=== PATIENT | female | born 1945 | race Caucasian/White ===

== ENCOUNTER 2016-10-20 06:11 | Day surgery (SDC) | payer OTHER ==
[2016-10-15 15:43] VITALS: BMI 25.9
[2016-10-20] MEDS ORDERED: TETRACAINE 0.5% OPHTH SOLN 2 ML BOTTLE ONE (07:14)
[2016-10-20] MEDS ORDERED: LIDOCAINE 1%-EPI 1:100,000 30 ML MDV IJ ONE (07:14)
[2016-10-20] MEDS ORDERED: BACITRACIN 3.5 GM OPTHALMIC OINT TUBE ONE (07:14)
[2016-10-20] MEDS ORDERED: POVIDONE-IODINE 5% OPHTHALMIC PREP 30 ML SOLUTION ONE (07:14)
[2016-10-20] MEDS ORDERED: MIDAZOLAM HCL 2 MG/2 ML SINGLE DOSE VIAL ONE (07:19)
[2016-10-20] MEDS ORDERED: PROPOFOL 20 ML ONE (07:19)
[2016-10-20] MEDS ORDERED: ceFAZolin SODIUM 1 GM VIAL ONE (07:49)
[2016-10-20] MEDS ORDERED: DEXAMETHASONE SOD PHOSPHATE 4 MG/1 ML VIAL ONE (08:05)
[2016-10-20] MEDS ORDERED: ONDANSETRON 4 MG/2 ML VIAL ONE (08:05)
[2016-10-20] MEDS ORDERED: LIDOCAINE HCL/PF 2% SDV 5ML VIAL ONE (08:17)
[2016-10-20] MEDS ORDERED: ACETAMINOPHEN 500 MG TABLET (FP) PO PRN (08:19)
--- NOTE | 2016-10-20 09:06 | OP ---
DATE OF OPERATION: 10/20/2016 PREOPERATIVE DIAGNOSIS: Involutional ptosis, left upper lid. POSTOPERATIVE DIAGNOSIS: Involutional ptosis, left upper lid. PROCEDURE: External levator reattachment, left upper lid. SURGEON: Cornelio Kaufman MD ANESTHESIA: Local with sedation. COMPLICATONS: None. ESTIMATED BLOOD LOSS: Less than 1 mL. OPERATION REPORT: Patient was brought to the operating room, placed on the operating room table. Vital signs monitored by Anesthesia. Tetracaine was placed in both eyes. Lid crease incision approximately 10 mm above the last line was marked with a sternile marking pin. Time-out was performed. The patient was given intravenous sedation, and 2% Xylocaine with 1:100,000 epinephrine was injected for 0.5 mL in the area of the lid crease, and then was allowed to disperse over the eyelid with gentle massage. Patient was prepped and draped in the usual sterile fashion exposing both eyes, and the following procedure was performed. The lid crease incision was incised with a 15 blade. Hemostasis was achieved with the [place] needle, and the [place] needle was used to continue the dissection through the orbicularis layer until the septum was visible. Suborbicularis plane was dissected as the fat pad had retracted significantly with complete dehiscence of this levator, and therefore, the dissection was carried into the superior orbit under the orbicularis where the septum was widely opened and the preaponeurotic running fat, was retracted demonstrating completely dehisced levator aponeurosis. Following this, the suborbicularis plane was dissected inferiorly, exposing the anterior superior tarsus, and then, the bleeding edge of the levator with its minimal amount of retained tendon was then reattached to the anterior superior tarsus partial thickness bite with a mattress 6-0 Vicryl suture. Patient was allowed to wake up, placed in the upright position, and the lid was seen to be appropriate, but much higher than the other lid, and therefore, as much of the tendon as could be salvaged was isolated, and a suture was passed through this portion of the tendon at its distal edge, slightly nasal to central, and then, patient was again placed in the upright positon. Good lid height and contour were seen with the lid approximately 3 to 3.5 mm above the visual axis. It could only have been dropped further with a hang-back suture, which would have been unpredictable, and therefore, it was left at this height. Additional single-arm 6-0 Vicryl suture was placed nasal to this suture. Lid height and contour were again checked and seemed to be excellent. Antibiotic irrigation was performed. Meticulous hemostasis was obtained. The wound was closed with a running 6-0 plain suture with plastic technique, and Bacitracin ointment was placed on the suture, and the patient was taken to the recovery room in stable condition. CORNELIO KAUFMAN M.D. [id number]
[2016-10-20] MEDS ORDERED: ACETAMINOPHEN 500 MG TABLET (FP) ONE (09:13)
[2016-10-20] MEDS ORDERED: ONDANSETRON 4 MG/2 ML VIAL IVPUSH PRN (09:42)
[2016-10-20] MEDS ORDERED: LACTATED RINGERS SOLUTION 1,000 ML IV SCH (09:45)
[2016-10-20 11:49] VITALS: TEMP 97.6
[2016-10-20 11:53] VITALS: BP 113/89; PULSE 68
== END 2016-10-20 09:45 | disposition home or self-care (01) ==
LOC: FASU 06:11
PROVIDERS: ATTEND Ophthalmology
PROC: 08BP0ZZ Excision of Left Upper Eyelid, Open Approach (ICD-10-PCS; principal; 2016-10-20 07:52)
DX: H02.402 Unspecified ptosis of left eyelid (principal)
CPT/HCPCS: 94760

== ENCOUNTER 2021-02-04 07:00 | Inpatient (IN) | payer OTHER ==
[2021-01-31 13:10] VITALS: BMI 24.9
[2021-02-04] MEDS ORDERED: CELECOXIB 200 MG CAPSULE PO ONE ×3 (07:16→07:45)
[2021-02-04] MEDS ORDERED: CEFAZOLIN 2 GM in DEXTROSE 5%-WATER - 50 ML IVPB ONE (07:30)
[2021-02-04] MEDS ORDERED: MAG HYDROX/AL HYDROX/SIMETH 30 ML UNIT-DOSE CUP PO PRN (07:36)
[2021-02-04] MEDS ORDERED: MAGNESIUM HYDROX 2400MG/30ML ORAL SUSPENSION 30 ML CUP PO PRN (07:36)
[2021-02-04] MEDS ORDERED: CELECOXIB 200 MG CAPSULE ONE (08:02)
[2021-02-04] MEDS ORDERED: VANCOMYCIN 1,000 MG VIAL (RESTRICTED TO ID ONLY) ONE (08:16)
[2021-02-04] MEDS ORDERED: ceFAZolin SODIUM 1 GM VIAL ONE ×2 (08:16→09:44)
[2021-02-04] MEDS ORDERED: BUPIVACAINE LIPOSOME/PF (EXPAREL) 266 MG/20 ML VIAL ONE (08:27)
[2021-02-04] MEDS ORDERED: BUPIVACAINE HCL/PF 0.5% (5MG/ML) 10 ML VIAL ONE (08:27)
[2021-02-04] MEDS ORDERED: SODIUM CHLORIDE 0.9% P/F 10 ML VIAL IJ ONE (08:27)
[2021-02-04] MEDS ORDERED: MIDAZOLAM HCL 2 MG/2 ML SINGLE DOSE VIAL ONE ×3 (08:27→10:38)
[2021-02-04] MEDS ORDERED: TRANEXAMIC ACID 1000 MG/10 ML VIAL IVPUSH ONE (09:00)
[2021-02-04] MEDS ORDERED: BUPIVACAINE HCL 50 ML ONE (09:13)
[2021-02-04] MEDS ORDERED: PROPOFOL 20 ML ONE (09:16)
[2021-02-04] MEDS ORDERED: SUCCINYLCHOLINE CHLORIDE 200 MG/10 ML SYRINGE ONE (09:17)
[2021-02-04] MEDS ORDERED: TRANEXAMIC ACID 1000 MG/10 ML VIAL ONE ×2 (09:44→11:08)
[2021-02-04] MEDS ORDERED: ACETAMINOPHEN INJECTION 100 ML IVPB ONE (11:41)
[2021-02-04] MEDS: ACETAMINOPHEN 1000 MG/100 ML VIAL (NON FORMULARY) IVPB ONE ×2 (11:45→13:37)
[2021-02-04] MEDS: SENNOSIDES/DOCUSATE COMBO (SENNA PLUS) TABLET (UD) PO SCH ×2 (13:37→21:21)
[2021-02-04] MEDS: LACTATED RINGERS SOLUTION 1,000 ML IV SCH ×2 (13:37→22:54)
[2021-02-04] MEDS: MULTIVITAMINS (DAILY MVI) TABLET (FP) PO SCH (13:37)
[2021-02-04] MEDS: oxyCODONE HCL 5 MG TABLET PO PRN (15:45)
[2021-02-04] MEDS: CEFAZOLIN 2 GM/D5W 2 GM/50 ML ML IVPB SCH (17:53)
[2021-02-04] MEDS: ACETAMINOPHEN 500 MG TABLET (FP) PO SCH (17:53)
[2021-02-04] MEDS ORDERED: PT OWN MED DRAWER 7, Y5N ONE (21:11)
[2021-02-04] MEDS: BRIMONIDINE TARTRATE 0.1% OPHTHALMIC 5 ML BOTTLE OU SCH (21:20)
[2021-02-04] MEDS: FAMOTIDINE 20 MG TABLET PO SCH (21:21)
[2021-02-04] MEDS: ESCITALOPRAM OXALATE 10 MG TABLET PO SCH (21:21)
[2021-02-05] MEDS: CEFAZOLIN 2 GM/D5W 2 GM/50 ML ML IVPB SCH (01:21)
[2021-02-05] MEDS: ACETAMINOPHEN 500 MG TABLET (FP) PO SCH ×4 (05:18→18:09)
[2021-02-05] MEDS: ONDANSETRON 4 MG/2 ML VIAL IVPUSH PRN (05:18)
[2021-02-05] MEDS: oxyCODONE HCL 5 MG TABLET PO PRN ×3 (05:55→21:31)
[2021-02-05] MEDS ORDERED: PT OWN MED DRAWER 7, Y5N ONE ×2 (06:07→09:17)
[2021-02-05 07:53] LABS: HEMATOCRIT 29.8 % (32.4-45.2); HEMOGLOBIN 10.1 GM/dl (10.7-15.3); MCH 30.5 pg (25.7-33.7); MCHC 33.7 g/dl (32.0-36.0); MEAN CELL VOLUME 90.3 fl (80-96); MEAN PLT VOLUME 6.9 fl (7.5-11.1); PLATELET COUNT 258 10^3/uL (134-434); RDW 12.8 % (11.6-15.6); WHITE BLOOD COUNT 9.5 K/mm3 (4.0-10.8)
[2021-02-05] MEDS: ASPIRIN 325 MG TABLET PO SCH (08:40)
[2021-02-05] MEDS: SENNOSIDES/DOCUSATE COMBO (SENNA PLUS) TABLET (UD) PO SCH ×2 (09:20→21:13)
[2021-02-05] MEDS: BRIMONIDINE TARTRATE 0.1% OPHTHALMIC 5 ML BOTTLE OU SCH ×2 (09:20→21:12)
[2021-02-05] MEDS: MULTIVITAMINS (DAILY MVI) TABLET (FP) PO SCH (09:24)
[2021-02-05] MEDS: ESCITALOPRAM OXALATE 10 MG TABLET PO SCH (21:12)
[2021-02-05] MEDS: FAMOTIDINE 20 MG TABLET PO SCH (21:13)
[2021-02-06] MEDS: ACETAMINOPHEN 500 MG TABLET (FP) PO SCH ×2 (03:22→05:55)
[2021-02-06] MEDS: ONDANSETRON 4 MG/2 ML VIAL IVPUSH PRN (05:55)
[2021-02-06 07:50] LABS: HEMATOCRIT 28.4 % (32.4-45.2); HEMOGLOBIN 9.6 GM/dl (10.7-15.3); MCH 30.7 pg (25.7-33.7); MEAN CELL VOLUME 90.3 fl (80-96); PLATELET COUNT 262 10^3/uL (134-434); RBC 3.14 M/mm3 (3.60-5.2); WHITE BLOOD COUNT 10.3 K/mm3 (4.0-10.8)
[2021-02-06] MEDS: ASPIRIN 325 MG TABLET PO SCH (09:02)
[2021-02-06] MEDS: MULTIVITAMINS (DAILY MVI) TABLET (FP) PO SCH (10:48)
[2021-02-06] MEDS: SENNOSIDES/DOCUSATE COMBO (SENNA PLUS) TABLET (UD) PO SCH (10:48)
[2021-02-06 11:05] VITALS: BP 121/51; PULSE 82; TEMP 98.1
== END 2021-02-06 11:57 | disposition home or self-care (01) | DRG 470 ==
LOC: FM/S 07:00 → FASUSAT 07:00 → UNDOADMIN 07:00 → EDSTATUS 09:00 → FM/S 12:36 → FASUSAT 12:36 → FM/S 12:39 → FASUSAT 02-06 11:57 → FM/S 02-06 11:57
PROVIDERS: ADMIT Orthopaedic Surgery; ATTEND Orthopaedic Surgery
PROC: 8E0YXBZ Computer Assisted Procedure of Lower Extremity (ICD-10-PCS; 2021-02-04)
PROC: 8E0Y0CZ Robotic Assisted Procedure of Lower Extremity, Open Approach (ICD-10-PCS; 2021-02-04)
PROC: 0SRD0J9 Replacement of Left Knee Joint with Synthetic Substitute, Cemented, Open Approach (ICD-10-PCS; principal; 2021-02-04 08:30)
DX: M17.12 Unilateral primary osteoarthritis, left knee (principal); F41.8 Other specified anxiety disorders; K21.9 Gastro-esophageal reflux disease without esophagitis; H40.10X0 Unspecified open-angle glaucoma, stage unspecified; M47.22 Other spondylosis with radiculopathy, cervical region; M81.0 Age-related osteoporosis without current pathological fracture; M77.8 Other enthesopathies, not elsewhere classified; M43.06 Spondylolysis, lumbar region; Z85.3 Personal history of malignant neoplasm of breast; Z87.11 Personal history of peptic ulcer disease; Z85.820 Personal history of malignant melanoma of skin
CPT/HCPCS: 20985; 27447; C1776; S2900; 36415; 73560-TC-LT-FY; 85027; 94760; 97010-GP; 97116-GP; J0131